=== PATIENT | female | born 1945 | race Caucasian/White ===

== ENCOUNTER 2017-01-11 09:45 | Emergency (ER) | payer MEDICARE, BC ==
[~2017-01-11] VITALS: Ht 162.6 cm; Wt 73.0 kg
[2017-01-11 09:55] VITALS: BP 170/82; PULSE 90; RESP 16; TEMP 98.2; O2SAT 95
--- NOTE | 2017-01-11 10:29 | PD ---
HPI Chief Complaint: Skin Problem Time Seen by Provider: 10:03 Travel History International Travel<30 days: No Contact w/Intl Traveler<30days: No Traveled to known affect area: No History of Present Illness HPI 71-year-old female is complaining of a rash. She has very sensitive skin. She had a staph infection last week and was treated by her doctor with clindamycin. She developed some loose stools. The clindamycin. The staph infection was on her right arm and has improved. She has been in the sun a little bit and is used to sunscreen on her face and neck. She's had some itching of her neck and this morning she noted an area on the left side of her face that was so swollen. She has a history of dermatomyositis and about 1999 which was treated with prednisone and methotrexate. It has not been active for several years. She has had shingles in the past. She has noted a red area on the neck was just itchy. This area that is raised on the left side face is itchy and she has had some watering from her eye PFSH Past Medical History Arthritis: Yes Autoimmune Disease: Yes (dermatomyositis) GERD: Yes Tetanus Vaccination: < 5 Years Influenza Vaccination: Yes ?: Not LMP: MENOPAUSAL Menopausal: Yes Past Surgical History Tonsillectomy: Yes Other Surgery: Yes (neck surgery) Social History Alcohol Use: Yes (occas. wine) Tobacco Use: No (states only smoked cigs during college years) Substance Use: No Allergies-Medications (Allergen,Severity, Reaction): Coded Allergies: Aspirin (Verified Allergy, Intermediate, TONGUE/LIP SWELLING, HIVES, ) Clindamycin (Verified Adverse Reaction, Intermediate, Diarrhea, 01/11/17) Reported Meds & Prescriptions Reported Meds & Active Scripts Active No Active Prescriptions or Reported Medications Review of Systems General / Constitutional: No: Fever, Chills Eyes: Positive: Tearing, No: Diploplia HENT: No: Rhinitis Cardiovascular: No: Chest Pain or Discomfort, Palpitations Respiratory: No: Cough, Shortness of Breath Gastrointestinal: No: Nausea, Vomiting Genitourinary: No: Frequency Musculoskeletal: No: Myalgias Skin: Positive Rash, Positive Itching Neurologic: No: Focal Abnormalities Hematologic/Lymphatic: No: Easy Bruising Physical Exam Narrative GENERAL: Well-developed female SKIN: Focused skin assessment warm/dry. There is some flat erythematous areas on the neck. They're not raised. There is no induration. There is an erythematous macular lesion just below the left eye. It is not raised or ankle. There is no drainage. HEAD: Atraumatic. Normocephalic. EYES: Pupils equal and round. No scleral icterus. No injection or drainage. ENT: No nasal bleeding or discharge. Mucous membranes pink and moist. NECK: Trachea midline. No JVD. CARDIOVASCULAR: Regular rate and rhythm. No murmur appreciated. RESPIRATORY: No accessory muscle use. Clear to auscultation. Breath sounds equal bilaterally. GASTROINTESTINAL: Abdomen soft, non-tender, nondistended. Hepatic and splenic margins not palpable. MUSCULOSKELETAL: No obvious deformities. No clubbing. No cyanosis. No edema. NEUROLOGICAL: Awake and alert. No obvious cranial nerve deficits. Motor grossly within normal limits. Normal speech. PSYCHIATRIC: Appropriate mood and affect; insight and judgment normal. Data Data Last Documented VS Vital Signs Date Time Temp Pulse Resp B/P Pulse Ox O2 Delivery O2 Flow Rate FiO2 01/11/17 10:10 16 01/11/17 09:55 98.2 90 170/82 95 MDM Medical Decision Making Medical Screen Exam Complete: Yes Emergency Medical Condition: Yes Medical Record Reviewed: Yes Differential Diagnosis Differential includes cellulitis, allergic reaction, dermatomyositis, shingles Narrative Course The rash does not appear consistent with cellulitis. There is no induration. She does not appear toxic. I believe this is an allergic reaction possibly to her sunscreen. I do not want to use hydrocortisone on the face and I don't think systemic steroids are warranted. I don't think antibiotics are indicated. I recommended that she avoid the sun, stop her sunscreen and use Benadryl for itching Diagnosis Primary Impression: Allergic reaction Qualified Code: T78.40XA - Allergic reaction, initial encounter Additional Instructions: stop sunscreen, avoid sun, use benadryl for itch Scripts No Active Prescriptions or Reported Meds Disposition: 01 DISCHARGE HOME Condition: Stable Jeromy Curran MD Jan 11, 2017 10:29
== END 2017-01-11 10:39 | disposition home or self-care (01) ==
LOC: PHED 09:45
DX: R21 Rash and other nonspecific skin eruption (principal); T78.40XA Allergy, unspecified, initial encounter; M33.99 Dermatopolymyositis, unspecified with other organ involvement
CPT/HCPCS: 99281